=== PATIENT | male | born 1960 | race Caucasian/White ===

== ENCOUNTER 2019-07-10 | Emergency (ER) | payer BC ==
[~2019-07-10] MED LIST: AMOXICILLIN500 MG OR; NO HOME MEDS; ULTRAM50 M1 OR
== END 2019-07-10 11:40 | disposition home or self-care (01) | DRG 605 ==
PROC: 0HQDXZZ Repair Right Lower Arm Skin, External Approach (ICD-10-PCS; principal; 2019-07-10)
DX: S51.811A Laceration without foreign body of right forearm, initial encounter (principal); W25.XXXA Contact with sharp glass, initial encounter; Y93.E9 Activity, other interior property and clothing maintenance; Y92.009 Unspecified place in unspecified non-institutional (private) residence as the place of occurrence of the external cause

== ENCOUNTER 2020-07-05 11:40 | Emergency (ER) | payer BC ==
[~2020-07-05] VITALS: Ht 160 cm; Wt 90.9 kg
[2020-07-05] MEDS ORDERED: CEPHALEXIN500 M1 PO (12:57)
[2020-07-05 13:10] VITALS: BP 134/89
== END 2020-07-05 13:10 | disposition home or self-care (01) | DRG 605 ==
LOC: ED 11:40
PROC: 0HQDXZZ Repair Right Lower Arm Skin, External Approach (ICD-10-PCS; principal; 2020-07-05)
DX: S51.811A Laceration without foreign body of right forearm, initial encounter (principal); W31.2XXA Contact with powered woodworking and forming machines, initial encounter

== ENCOUNTER 2022-12-18 15:45 | Emergency (ER) | payer BC ==
[2022-12-18] VITALS (7 sets, daily range): BP systolic 110–137; BP diastolic 55–74
[~2022-12-18] VITALS: Ht 160 cm; Wt 80.0 kg
[~2022-12-18 15:45] MED LIST changes: +CEPHALEXIN500 M1 PO
[2022-12-18 16:29] LABS: ALBUMIN 4.4 g/dL (3.2-5.0); ALKALINE PHOSPHATASE 64 u/l (38-126); ANION GAP 12 (6-22 (CALC)); BILIRUBIN, TOTAL 0.6 mg/dL (0.2-1.3); BUN 16 mg/dL (8-23); BUN/CREATININE RATIO 18 (12-20 (CALC)); CARBON DIOXIDE 29 mmol/l (22-30); CHLORIDE 101 mmol/l (95-108); CREATININE 0.9 mg/dL (0.7-1.3); GFR FOR AFR.AMER. > 60 ML/MIN (>=60 (CALC)); GFR OTHER RACES > 60 ML/MIN (>=60 (CALC)); SGOT/AST 26 u/l (19-48); SODIUM 139 mmol/l (137-146); TOTAL PROTEIN 7.8 g/dL (6.3-8.2)
[2022-12-18 16:32] LABS: BASO% 0.3 % (0-3); EOS% 3.8 % (0-8); HEMATOCRIT 43.4 % (39.0-50.0); HEMOGLOBIN 14.6 g/dl (14.0-18.0); IMMATURE GRANULOCYTES 0.2 % (0.0-5.0); LYMPH% 25.3 % (15-41); MEAN CELL VOLUME 92.5 fL CALC (80.0-100.0); MEAN CORPUSCULAR HGB 31.1 pG CALC (26.0-32.0); MEAN CORPUSCULAR HGB CONC 33.6 g/dL CAL (32.0-36.0); MONO% 12.6 % (2-13); NEUT# 3.54 thou/uL (1.82-7.42); NEUT% 57.8 % (42-76); RED BLOOD COUNT 4.69 mill/uL (4.70-6.10); RED CELL DISTRI WIDTH 11.9 % (11.5-15.5)
[2022-12-18] MEDS ORDERED: ZOFRAN4 MG/TAB PO (18:19)
[2022-12-18] MEDS ORDERED: MECLIZINE 2525 MG PO (18:40)
== END 2022-12-18 18:43 | disposition home or self-care (01) | DRG 313 ==
LOC: ED 15:45
PROVIDERS: Family Medicine
DX: R07.9 Chest pain, unspecified (principal); E78.00 Pure hypercholesterolemia, unspecified